=== PATIENT | male | born 1955 | race Caucasian/White ===

== ENCOUNTER 2017-04-20 18:56 | Observation (INO) | payer OTHER ==
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
[2017-04-20 19:14] LABS: PLATELET COUNT 239 10^3/uL (150-400)
[2017-04-20] MEDS ORDERED: HYDROCOD/APAP 5/325 PREPACK#6 BTL TAKEHOME ONE (19:59)
[2017-04-20] MEDS ORDERED: SKIN ADHESIVE (DERMABOND) 1 EACH TP ONE (20:05)
[2017-04-20] MEDS ORDERED: HYDROmorphONE/DILAUDID 1 MG/ML INJ IVP ONE (20:29)
[2017-04-20] MEDS ORDERED: HYDROmorphONE/DILAUDID 1 MG/ML INJ ONE (20:30)
[2017-04-20] MEDS ORDERED: ONDANSETRON DISINTEGRATING 4 MG TAB PO ONE (20:35)
[2017-04-20] MEDS ORDERED: ONDANSETRON DISINTEGRATING 4 MG TAB ONE (20:35)
[2017-04-20] MEDS ORDERED: ONDANSETRON 4 MG/2 ML VIAL IVP ONE (21:53)
[2017-04-20] MEDS ORDERED: NALOXONE HCL 0.4 MG/ML INJ IVP PRN (21:56)
[2017-04-20] MEDS ORDERED: ACETAMINOPHEN 325 MG TAB PO PRN (21:56)
[2017-04-20] MEDS: HYDROCODONE/APAP 5/325 TAB PO PRN (23:29)
--- NOTE | 2017-04-21 00:32 | GHP ---
[f rep st] HISTORY AND PHYSICAL DATE OF ADMISSION: 04/20/2017 CHIEF COMPLAINT: Fall. HISTORY OF PRESENT ILLNESS: The patient is a 61-year-old man, who was found down at his house. His had called and he sounded confused and so she called a neighbor to check on him. The neighbor f ound him with blood on and confused. EMS reported blood on the stairs. The patient has no memory of a fall. PAST MEDICAL HISTORY: Lupus. SOCIAL HISTORY: Works at home. He is . He does not use tobacco products. FAMILY HISTORY: Noncontributory. REVIEW OF SYSTEMS: Positive for a severe headache, otherwise no vision changes. No facial pain. No hearing loss. No long bone pain. Otherwise 10-point review of systems negative. PHYSICAL EXAMINATION: GENERAL: Pleasant, well-nourished, well-groomed man. His GCS is 15. HEAD: He has a hematoma on the left side of his forehead. HEENT: He has left periorbital ecchymoses, but his vision is intact. His hearing is intact. No otorrhea. No rhinorrhea. Teeth fit together sheeba lly. NECK: No cervical tenderness. BACK: No thoracic or lumbar tenderness. LUNGS: Clear to ausc ultation bilaterally. No increased work of breathing. CARDIAC: Regular rate. ABDOMEN: Bowel soun ds present. Soft, nontender, nondistended. EXTREMITIES: Left wrist in splint. 5/5 strength in all extremities, but did not examine the left hand or forearm. NEURO: Grossly intact. PSYCH: Mood an d affect normal. LABORATORY DATA: Results reviewed. I reviewed the results of his head CT, face CT, C-spine CT and x -rays. There is no intracranial process. He does have fractures involving the left lateral orbital wall, infraorbital rim and floor, posterior wall of the maxillary sinus. He has a small amount of pn eumocephalus, fracture of the base of the nasal bone. There are no C-spine injuries noted. He has a n acute, nondisplaced, radial styloid fracture and a subacute triquetral fracture, and acute radial n jose fracture. IMPRESSION AND PLAN: The patient is a 61-year-old man, who was found at his house, who is amnestic t o events. He has facial fractures, periorbital ecchymosis, fractures of his radius. Dr. Pringle has bee n consulted and will see him in the morning, and Dr. Longo will also see him in the morning. He barnes s not need a dedicated temporal bone CT at this time. His hearing is intact. We will admit him to t he floor and due to his loss of consciousness, we will do q.4 hours neuro checks. PT, OT, ST. /[id number]/MODL
[2017-04-21] MEDS: HYDROCODONE/APAP 5/325 TAB PO PRN ×3 (04:05→22:33)
--- NOTE | 2017-04-21 08:22 | TRAUMAPN ---
- Problem/Surgery Performed (1) Orbital roof fracture with intracranial injury Assessment/Plan: no indications for surgical intervention discussed limitations in activity next 6 weeks (2) Fall (on) (from) other stairs and steps, initial encounter Assessment/Plan: mechanism of injury (3) Distal radius fracture, left Assessment/Plan: FU Dr. Pringle outpatient ortho Qualifiers: Encounter type: initial encounter Fracture type: closed Fracture morphology: other fracture Qualified Code(s): S52.592A - Other fractures of lower end of left radius, initial encounter for closed fracture Assessment/Plan: s/p unwitnessed fall with CHI/concussion/LOC Left orbital fractures-ENT consult Dr. Longo appreciated left radial styloid fracture-Ortho consult Dr. Pringle appreciated hx. Lupus Erythematosis Plan: PT/OT/ST ?home later today/outpatient opthamology follow up Dr. Lora discussed post concussion care and activity limitations Subjective: awake and alert/amnestic for events prior to and subsequent to injury pain left shoulder/left wrist no further nausea no diploplia Objective: Vital Signs Temp Pulse Resp BP Pulse Ox 37.1 C 67 17 112/75 95 04/21/17 07:26 04/21/17 07:26 04/21/17 07:26 04/21/17 07:26 04/21/17 07:26 04/20/17 04/21/17 04/22/17 05:59 05:59 05:59 Intake Total 1400 Balance 1400 - C-Spine Clearance Cervical Spine Cleared: Yes Provider who Cleared Cervical Spine: Martin Physical Exam - Physical Exam General Appearance: WD/WN, alert, no apparent distress, other (tertiary exam completed) EENT: PERRL/EOMI, other (left ivet-orbital ecchymosis/globe intact with mild scleral injection) Neck: non-tender, full range of motion, supple Respiratory: lungs clear, normal breath sounds Cardiac/Chest: regular rate, rhythm Peripheral Pulses: 4+: dorsalis-pedis (R), dorsalis-pedis (L) Abdomen: normal bowel sounds, non-tender, soft Male Genitalia: deferred Rectal: deferred Back: Normal inspection Skin: normal color, warm/dry Lymphatic: no adenopathy Extremities: other (left forearm splint/mild swelling left fingers/ neurovascular intact/tenderness left proximal biceps tendon) Neuro/Psych: no motor/sensory deficits, alert, normal mood/affect, oriented x 3 Time Spent w/Patient (minutes): 25
[2017-04-21] MEDS: HYDROXYCHLOROQUINE SULFATE 200 MG TAB PO SCH ×2 (08:35→20:18)
--- NOTE | 2017-04-21 08:58 | GCON ---
[f rep st] CONSULTATION DATE OF CONSULTATION: 04/21/2017 CHIEF COMPLAINT: Facial fractures. HISTORY OF PRESENT ILLNESS: This 61-year-old male may have fallen yesterday. He sustained amnesia s urrounding the event. The patient was transferred to [facility] where he was noted t o have fractures involving the left forearm and left face. CT imaging at that time was performed whi ch revealed nondisplaced fractures involving the lateral left orbital rim, posterior wall of the left maxilla and the anterior 3rd of left orbital floor, as well as a nondisplaced fracture coursing thro ugh the right orbital roof and right temporal bone. I was asked to evaluate on the patient further. PAST MEDICAL HISTORY: Mr. Cespedes's past medical history is otherwise noncontributory. PHYSICAL EXAMINATION: On examination, the patient was an alert male in no apparent distress. Modera te left periorbital ecchymosis was noted to be present. An abrasion of the left frontal skin was not ed. The tympanic membranes, middle ears, and external auditory canals within normal limits. Nasal e xam was unremarkable. Oral cavity and oropharynx exam were within normal limits. Good occlusion was noted. Adequate mobility of the left globe was noted and no gross diplopia was appreciated. No bony facial step-off was present on deep palpation of the facial bones. The patient's facial sensation a nd facial movements were intact. IMPRESSION: It is my impression that the patient sustained a nondisplaced left orbital fracture. In addition, he fractured the orbital roof extending into the region of the right temporal bone. A sma ll amount of pneumocephalus was noted. This was evaluated by the neurosurgeons who felt that no furt her therapy was necessary. The patient's orbital fractures are nondisplaced. At this point, no surg ical intervention is required. He is to follow up with his quality control expert with complete ophthalmolo gical evaluation. I have asked that he contact me should further issues be noted. /[id number]/MODL
--- NOTE | 2017-04-21 09:28 | GCON ---
[f rep st] CONSULTATION This is a consultation for the trauma service, Dr. Espinoza. CHIEF COMPLAINT: Left wrist and elbow pain. HISTORY OF PRESENT ILLNESS: This patient is a 61-year-old male who was found down yesterday. He barnes s not remember what happened. He likely fell down some stairs. There was blood found at the bottom of the stairs. He was seen and evaluated in the ER by the ER service and the trauma service. He com plained of left wrist pain and left elbow pain, along with facial pain. A CT scan was performed whic h showed a number of facial fractures. X-rays were performed of the wrist and the elbow, which showe d fractures of the wrist and the elbow. I was consulted for evaluation of these injuries. The patie nt was splinted in the ER. On evaluation today, he notes that the pain in his wrist and elbow is imp roved in the splint. He denies prior injuries to the wrist and elbow. REVIEW OF SYSTEMS: 10-point review of systems negative as noted above in the HPI. PAST MEDICAL HISTORY: Significant for lupus. SOCIAL HISTORY: Noncontributory. FAMILY HISTORY: Noncontributory. PHYSICAL EXAMINATION: GENERAL: Alert and oriented x3, lying in bed in his room. Appears comfortabl e. MUSCULOSKELETAL: Left upper extremity: Fingers are well. He has intact motor, AIN, PIN, and ul geronimo nerves. Sensation intact to light touch over the median, ulnar, and radial distributions of the fingers. His fingers are well perfused. IMAGING: Reviewed x-rays taken in the ER. The wrist x-rays confirmed a nondisplaced radial styloid fracture. X-rays of the elbow are significant for a nondisplaced radial neck fracture. ASSESSMENT AND PLAN: Nondisplaced radial styloid fracture and nondisplaced radial neck fracture. Th danial injuries may be treated closed with immobilization. I recommend keeping the current splint. He will be seen in the office in 1 week. At that point, we will re-evaluate the injuries radiographical ly to assess stability of the fractures and likely treat in a cast or a brace for the wrist and gentl e range of motion of the elbow. I left him a card. I instructed the patient to followup in about a week. /[id number]/MODL
[2017-04-21] MEDS: ONDANSETRON 4 MG/2 ML VIAL IVP PRN ×2 (11:06→18:48)
--- NOTE | 2017-04-21 11:19 | ASMTCMCOM ---
CM Note CM Note Notes: Reviewed chart. Pt found down at home (possibly fell down stairs pr MD note), sustained LUE fx and facial fx. Pt [facility] at [facility] w[facility] Pt cleared by PT to dc home; having issues w/N/V today. Awaiting SP/OT recommendations. Anticiapte pt will dc home w/. CM will follow. Date Signed: 04/21/2017 11:18 AM Electronically Signed By:Liberty Keller RN
[2017-04-21 11:30] VITALS: RESP 16
[2017-04-21] MEDS: oxyCODONE IR 5 MG TAB PO PRN ×2 (16:46→20:18)
[2017-04-22] MEDS: HYDROCODONE/APAP 5/325 TAB PO PRN ×2 (00:08→08:55)
[2017-04-22] MEDS: ONDANSETRON 4 MG/2 ML VIAL IVP PRN ×2 (02:04→10:28)
[2017-04-22 07:28] VITALS: PULSE 58
[2017-04-22] MEDS: HYDROXYCHLOROQUINE SULFATE 200 MG TAB PO SCH (08:55)
[2017-04-22 16:42] VITALS: BP 125/75; TEMP 97.4; O2SAT 95
[2017-04-22] MEDS ORDERED: ONDANSETRON DISINTEGRATING 4 MG TAB PO PRN (17:19)
--- NOTE | 2017-04-22 18:20 | PDDCSUM ---
Discharge Summary Discharge Summary: DOA 04/20/2017 DOD 04/22/2017 DC Dx: 1. unwitnessed fall 2. closed head injury with concussion 3. right frontal sinus/temporal bone fractures associated with minimal pneumocephalus 4. left orbial rim, orbital floor, lateral orbital wall fractures without occular injury 5. left distal radius fracture 6. history of lupus, currently asymptomatic DC Medications: [place] 5/325 #20 Zofran 4mg #10 Senokot-S #30 Plaquenil resume Hospital Course: Christo was brought in by paramedics after he was found at home with evidence of a fall with closed head injury. He was confused (GCS 14 ) on admission and was admitted to the ICU/Trauma Service by Dr. Fritz. He was found to have multiple injuries as detailed above. His cervical spine was cleared clinically and with a negative CT. His sensorium cleared, though he continued to have nausea. ENT consult with Dr. Longo and Ortho consult with Dr. Pringle were obtained. Non-operative treatment was recommended. He was advanced in his diet and was seen and cleared by PT/OT and ST. At the time of discharge he was afebrile, ambulatory and tolerating a soft diet. He was advised to avoid overstimulation and secondary brain injury. He will follow up with Dr. Longo and Dr. Pringle, and he has an appointment next week with his regular Opthamologist, Dr. Lora. Condition at time of discharge: randy ochoa MD, FACS
[2017-04-22] MEDS ORDERED: SENNOSIDES/DOCUSATE SODIUM TAB PO SCH (21:00)
== END 2017-04-22 18:05 | disposition home or self-care (01) ==
LOC: EDSEX 18:56 → F3N 22:40
PROVIDERS: ADMIT Surgery; ATTEND Surgery
PROC: 2W3DX1Z Immobilization of Left Lower Arm using Splint (ICD-10-PCS; principal; 2017-04-20)
DX: S06.0X1A Concussion with loss of consciousness of 30 minutes or less, initial encounter (principal); S02.19XA Other fracture of base of skull, initial encounter for closed fracture; S02.32XA Fracture of orbital floor, left side, initial encounter for closed fracture; S02.2XXA Fracture of nasal bones, initial encounter for closed fracture; S52.592A Other fractures of lower end of left radius, initial encounter for closed fracture; S52.135A Nondisplaced fracture of neck of left radius, initial encounter for closed fracture; S01.112A Laceration without foreign body of left eyelid and periocular area, initial encounter; W19.XXXA Unspecified fall, initial encounter; Y92.019 Unspecified place in single-family (private) house as the place of occurrence of the external cause; R40.2412 Glasgow coma scale score 13-15, at arrival to emergency department; M32.9 Systemic lupus erythematosus, unspecified; Z88.0 Allergy status to penicillin
CPT/HCPCS: 25600; 70450; 70486; 72125; 73080; 73110; 92507; 92523; 97116; 97161; 97165; G0378; 82947-QW; A4565; G0480; J1170; J2270; J2405; L3908